=== PATIENT | female | born 1950 | race Caucasian/White ===

== ENCOUNTER 2020-02-14 08:35 | Outpatient (CLI) | payer MEDICARE, OTHER ==
--- NOTE | 2020-02-15 07:21 | NM ---
NUCLEAR MEDICINE BRAIN IMAGING: HISTORY: Parkinson's disease TECHNIQUE: A Kayla scan with axial tomographic images of the brain was obtained 3 hours following the intravenous administration of 4mCi I-123 Ioflupane. The patient was pretreated with 130 mg of oral potassium iodide 1 hour prior to the injection. FINDINGS: There is loss of normal symmetric comma shaped shaped uptake in the striata bilaterally. IMPRESSION: Parkinsonian syndrome. (Parkinsonian syndromes include Parkinson's disease, multiple system atrophy, progressive supranuclea r palsy, dementia with Lewy bodies and cortical basal degeneration).
== END 2020-02-14 08:36 | disposition home or self-care (01) ==
LOC: NM 08:35
PROVIDERS: ATTEND Psychiatry & Neurology Neurology
DX: G20 Parkinson's disease (principal)
CPT/HCPCS: 78803; A9584

== ENCOUNTER 2020-02-16 14:31 | Outpatient (CLI) | payer MEDICARE, OTHER ==
[2020-02-16] MEDS ORDERED: Magnevist 469MG/ML 20 ML VIAL ONE (15:30)
--- NOTE | 2020-02-16 16:13 | MRI ---
MRI BRAIN WITH AND WITHOUT CONTRAST: DATE: 02/16/2020 HISTORY: 69-year-old female with Parkinson's disease G20 TECHNIQUE: Multiplanar, multisequence MRI of the brain obtained pre and post IV injection of gadolinium based co ntrast agent. FINDINGS: All images are degraded by patient motion, especially the FLAIR and T2-weighted axial images. There is no obstructive hydrocephalus. There is no midline shift or any other evidence of mass effect . There is no extra-axial fluid collection. There are moderate chronic ischemic white matter changes due to microvascular atherosclerosis. There is diffuse brain parenchymal volume loss. There i s no evidence of recent hemorrhage, mass, abnormal enhancement, or restricted diffusion. There are numerous tiny old lacunar infarctions in bilateral basal ganglia and thalami. IMPRESSION: 1) Involutional changes and moderate chronic ischemic white matter changes. 2) several tiny bilateral lacunar infarctions in basal ganglia and thalami. 3) no acute or aggressive intracranial findings.
== END 2020-02-16 14:32 | disposition home or self-care (01) ==
LOC: BICMRI 14:31
PROVIDERS: ATTEND Psychiatry & Neurology Neurology
DX: G20 Parkinson's disease (principal); I63.81 Other cerebral infarction due to occlusion or stenosis of small artery; I67.82 Cerebral ischemia
CPT/HCPCS: 70553; 82565; A9579

== ENCOUNTER 2021-08-18 10:58 | Emergency (ER) | payer MEDICARE, OTHER | END 2021-08-18 15:51 | LOC: ERS 10:58 | DX: S00.03XA Contusion of scalp, initial encounter (principal); X58.XXXA Exposure to other specified factors, initial encounter; E11.9 Type 2 diabetes mellitus without complications; G20 Parkinson's disease | CPT/HCPCS: 70450; 72125 ==